=== PATIENT | female | born 1945 | race Caucasian/White ===

== ENCOUNTER → 2022-08-18 | Outpatient (CLI) | payer MEDICARE, OTHER ==
[2022-08-18 13:29] LABS: BASOPHILS ABSOLUTE AUTO 0.02 K/mm3 (0.00-0.23); BASOPHILS PERCENT AUTO 0 % (0-2); EOSINOPHILS ABSOLUTE AUTO 0.01 K/mm3 (0.00-0.68); EOSINOPHILS PERCENT AUTO 0 % (0-6); Hematocrit 42.4 % (33.0-51.0); IMMATURE GRAN ABSOLUTE AUTO 0.03 K/mm3 (0.00-0.10); IMMATURE GRAN PERCENT AUTO 0 % (0-1); LYMPHOCYTES ABSOLUTE AUTO 2.69 K/mm3 (0.84-5.20); LYMPHOCYTES PERCENT AUTO 28 % (21-46); MONOCYTES ABSOLUTE AUTO 0.73 K/mm3 (0.16-1.47); MONOCYTES PERCENT AUTO 8 % (4-13); Mean Corpuscular HGB 32.5 pg (26.0-34.0); Mean Corpuscular HGB Conc 35.4 g/dL (31.5-36.5); Mean Corpuscular Volume 92 fL (80-100); Mean Platelet Volume 9.8 fL (9.1-12.4); NEUTROPHILS PERCENT AUTO 64 % (41-73); Platelet Count 227 K/mm3 (150-400); RDW Coefficient Variation 11.8 % (11.7-14.2); RDW Standard Deviation 39.8 fL (35.1-46.3); Red Blood Cell Count 4.61 M/mm3 (3.80-5.20); White Blood Cell Count 9.58 K/mm3 (4.00-11.30)
[2022-08-18 14:21] LABS: Albumin, Blood 3.8 g/dL (3.4-5.0); Albumin/Globulin Ratio 1.2 (0.8-1.8); Bilirubin, Total 0.7 mg/dL (0.1-1.0); Calcium, Blood 9.5 mg/dL (8.5-10.1); Creatinine, Blood 0.89 mg/dL (0.40-1.00); Globulin, Blood 3.3 g/dL (2.2-4.0); Potassium, Blood 3.8 mmol/L (3.5-5.5); Thyroid Stimulating Hormone 0.915 uIU/mL (0.360-4.800); Total Protein, Blood 7.1 g/dL (6.4-8.2)
== END ==
LOC: LAB SHORT 13:21
PROVIDERS: Physician Assistant
DX: R10.9 Unspecified abdominal pain (principal); M62.81 Muscle weakness (generalized)
CPT/HCPCS: 80053; 83690; 84443; 84484; 85025

== ENCOUNTER 2022-10-09 06:40 | Emergency (ER) | payer MEDICARE, OTHER ==
[~2022-10-09] VITALS: Ht 162.6 cm; Wt 50.8 kg
[~2022-10-09 06:40] MED LIST: ONDA4ODT MM; Percocet 5-3251 EACH PO
[2022-10-09 07:33] LABS: Albumin, Blood 2.1 g/dL (3.4-5.0); Albumin/Globulin Ratio 0.8 (0.8-1.8); Bilirubin, Direct 0.2 mg/dL (0.0-0.3); Bilirubin, Indirect 0.5 mg/dL (0.1-0.7); Bilirubin, Total 0.7 mg/dL (0.1-1.0); Bun/Creatinine Ratio 23.5 (12.0-20.0); Calcium, Blood 6.2 mg/dL (8.5-10.1); Creatinine, Blood 0.64 mg/dL (0.40-1.00); Globulin, Blood 2.5 g/dL (2.2-4.0); Magnesium, Blood 1.3 mg/dL (1.6-2.4); Potassium, Blood 3.2 mmol/L (3.5-5.5); Total Protein, Blood 4.6 g/dL (6.4-8.2)
[2022-10-09 07:39] LABS: BASOPHILS PERCENT AUTO 0 % (0-2); EOSINOPHILS ABSOLUTE AUTO 0.01 K/mm3 (0.00-0.68); EOSINOPHILS PERCENT AUTO 0 % (0-6); Hematocrit 32.1 % (33.0-51.0); Hemoglobin 11.1 g/dL (11.5-16.0); IMMATURE GRAN ABSOLUTE AUTO 0.04 K/mm3 (0.00-0.10); IMMATURE GRAN PERCENT AUTO 1 % (0-1); LYMPHOCYTES ABSOLUTE AUTO 2.12 K/mm3 (0.84-5.20); LYMPHOCYTES PERCENT AUTO 27 % (21-46); MONOCYTES ABSOLUTE AUTO 0.55 K/mm3 (0.16-1.47); MONOCYTES PERCENT AUTO 7 % (4-13); Mean Corpuscular HGB 32.7 pg (26.0-34.0); Mean Corpuscular HGB Conc 34.6 g/dL (31.5-36.5); Mean Corpuscular Volume 95 fL (80-100); Mean Platelet Volume 9.8 fL (9.1-12.4); NEUTROPHILS ABSOLUTE AUTO 5.16 K/mm3 (1.96-9.15); NEUTROPHILS PERCENT AUTO 66 % (41-73); Platelet Count 189 K/mm3 (150-400); RDW Coefficient Variation 11.8 % (11.7-14.2); RDW Standard Deviation 40.9 fL (35.1-46.3); Red Blood Cell Count 3.39 M/mm3 (3.80-5.20); White Blood Cell Count 7.88 K/mm3 (4.00-11.30)
[2022-10-09 08:49] LABS: Source, Urine Clean Catch
[2022-10-09] MEDS ORDERED: EZETIMIBE10 M6 PO (08:53)
[2022-10-09 09:21] LABS: Appearance, Urine Clear (Clear); Bilirubin, Urine Neg (Neg); Blood, Urine Neg (Neg); Color, Urine Yellow (P-Yellow); Glucose Qualitative, Urine Neg (Neg); Ketones, Urine 2+ (Neg); Leukocyte Esterase, Urine Neg (Neg); Nitrite, Urine Neg (Neg); Protein, Urine Neg (Neg); Urobilinogen, Urine NORM (Normal)
[2022-10-09] MEDS ORDERED: DICY20 PO (12:25)
[2022-10-09] MEDS ORDERED: ONDA4ODT MM (12:25)
[2022-10-09 12:30] VITALS: BP 120/70
[2022-10-11] MEDS ORDERED: ONDA4ODT MM (15:01)
[2022-10-11] MEDS ORDERED: Bentyl20 MG PO (15:01)
== END 2022-10-09 13:02 | disposition home or self-care (01) ==
LOC: ER 06:40
PROVIDERS: Student in an Organized Health Care Education/Training Program
DX: R25.2 Cramp and spasm (principal); E87.6 Hypokalemia; E83.42 Hypomagnesemia; E83.51 Hypocalcemia; Z79.899 Other long term (current) drug therapy
CPT/HCPCS: 71046; 74177; 80048; 80076; 81003; 83690; 83735; 85025; 93005; 93010; 96365-59; 96366; 96368; 96375; 99285-25; A9270; J0612; J1885; J2405; J3475; J3480; J7030; Q9967

== ENCOUNTER 2022-10-22 11:54 | Inpatient (IN) | payer MEDICARE, OTHER ==
[~2022-10-22] VITALS: Ht 162.6 cm; Wt 49.9 kg
[~2022-10-22 11:54] MED LIST changes: +Bentyl20 MG PO; +DICY20 PO; +EZETIMIBE10 M6 PO
[2022-10-22] MEDS ORDERED: CELEXA10 MG PO (12:06)
[2022-10-22] MEDS ORDERED: LATANOPROST2.5 M3 (12:06)
[2022-10-22 13:43] LABS: BASOPHILS ABSOLUTE AUTO 0.02 K/mm3 (0.00-0.23); BASOPHILS PERCENT AUTO 0 % (0-2); EOSINOPHILS ABSOLUTE AUTO 0.01 K/mm3 (0.00-0.68); EOSINOPHILS PERCENT AUTO 0 % (0-6); Hematocrit 39.5 % (33.0-51.0); Hemoglobin 14.1 g/dL (11.5-16.0); IMMATURE GRAN ABSOLUTE AUTO 0.03 K/mm3 (0.00-0.10); IMMATURE GRAN PERCENT AUTO 0 % (0-1); LYMPHOCYTES ABSOLUTE AUTO 2.59 K/mm3 (0.84-5.20); LYMPHOCYTES PERCENT AUTO 28 % (21-46); MONOCYTES ABSOLUTE AUTO 0.72 K/mm3 (0.16-1.47); MONOCYTES PERCENT AUTO 8 % (4-13); Mean Corpuscular HGB 33.7 pg (26.0-34.0); Mean Corpuscular HGB Conc 35.7 g/dL (31.5-36.5); Mean Corpuscular Volume 95 fL (80-100); Mean Platelet Volume 10.1 fL (9.1-12.4); NEUTROPHILS PERCENT AUTO 64 % (41-73); Platelet Count 292 K/mm3 (150-400); RDW Coefficient Variation 12.5 % (11.7-14.2); RDW Standard Deviation 43.2 fL (35.1-46.3); Red Blood Cell Count 4.18 M/mm3 (3.80-5.20); White Blood Cell Count 9.27 K/mm3 (4.00-11.30)
[2022-10-22 14:39] LABS: Albumin, Blood 2.7 g/dL (3.4-5.0); Albumin/Globulin Ratio 0.9 (0.8-1.8); Bilirubin, Total 0.4 mg/dL (0.1-1.0); Bun/Creatinine Ratio 13.7 (12.0-20.0); Calcium, Blood 7.7 mg/dL (8.5-10.1); Creatinine, Blood 0.73 mg/dL (0.40-1.00); Globulin, Blood 2.9 g/dL (2.2-4.0); Potassium, Blood 3.4 mmol/L (3.5-5.5); Total Protein, Blood 5.6 g/dL (6.4-8.2)
[2022-10-22 18:33] VITALS: BP 143/74
[2022-10-23 02:45] VITALS: BP 142/66
--- NOTE | 2022-10-23 04:26 | NUR ---
PHONE CALL PT AWAKE IN ROOM W/ SON ON THE PHONE W/ . PT REPORTS FEELING LESS NAUSEATED THIS MORNING.
[2022-10-23 05:42] LABS: BASOPHILS ABSOLUTE AUTO 0.01 K/mm3 (0.00-0.23); BASOPHILS PERCENT AUTO 0 % (0-2); EOSINOPHILS PERCENT AUTO 0 % (0-6); Hematocrit 36.8 % (33.0-51.0); Hemoglobin 12.9 g/dL (11.5-16.0); IMMATURE GRAN ABSOLUTE AUTO 0.02 K/mm3 (0.00-0.10); IMMATURE GRAN PERCENT AUTO 0 % (0-1); LYMPHOCYTES ABSOLUTE AUTO 1.57 K/mm3 (0.84-5.20); LYMPHOCYTES PERCENT AUTO 18 % (21-46); MONOCYTES ABSOLUTE AUTO 0.62 K/mm3 (0.16-1.47); MONOCYTES PERCENT AUTO 7 % (4-13); Mean Corpuscular HGB 33.4 pg (26.0-34.0); Mean Corpuscular HGB Conc 35.1 g/dL (31.5-36.5); Mean Corpuscular Volume 95 fL (80-100); Mean Platelet Volume 9.2 fL (9.1-12.4); NEUTROPHILS ABSOLUTE AUTO 6.59 K/mm3 (1.96-9.15); NEUTROPHILS PERCENT AUTO 75 % (41-73); Platelet Count 212 K/mm3 (150-400); RDW Coefficient Variation 12.9 % (11.7-14.2); RDW Standard Deviation 44.4 fL (35.1-46.3); Red Blood Cell Count 3.86 M/mm3 (3.80-5.20); White Blood Cell Count 8.81 K/mm3 (4.00-11.30)
[2022-10-23 06:08] LABS: Albumin/Globulin Ratio 0.9 (0.8-1.8); Bilirubin, Total 0.5 mg/dL (0.1-1.0); Bun/Creatinine Ratio 11.2 (12.0-20.0); Calcium, Blood 8.8 mg/dL (8.5-10.1); Creatinine, Blood 0.71 mg/dL (0.40-1.00); Globulin, Blood 3.4 g/dL (2.2-4.0); Magnesium, Blood 1.9 mg/dL (1.6-2.4); Phosphorus, Blood 3.6 mg/dL (2.5-4.9); Total Protein, Blood 6.4 g/dL (6.4-8.2)
--- NOTE | 2022-10-23 06:14 | NUR ---
SHIFT SUMMARY ER ADMIT FOR HYPEREMISIS W/ HYPOPHOSPHATEMIA AND HYPOKALEMIA. RECENT WT LOSS OF 20LBS/ 2 MONTHS. A&OX4 VERY PLEASANT AND COOPERATIVE. AND SON VERY INVOLVED W/ PT CARE, SON STAYED W/ MOM T/O NIGHT. PT RECEIVING NS IV FLUIDS TO R FA. PT REPORTS NOT FEELING DIZZY TODAY PREVIOUS DAYS. PT CONTINUES TO REPORT OCCASIONAL NAUSEA W/ NO EMISIS REPORTED OR VISUALIZED. PT TOLERATED BITES OF JELLO AND SIPS OF BROTH THIS SHIFT. PT/OT EVAL ORDERED. NO ACUTE CHANGES THIS SHIFT. CALL LIGHT W/IN REACH, WILL REPORT OFF TO DAY SHIFT STAFF.
[2022-10-23 07:55] VITALS: BP 147/71
--- NOTE | 2022-10-23 08:42 | NUR ---
EDUCATED ON FIRE SAFETY. PT AND FAMILY VERBALIZED UNDERSTANDING.
[2022-10-23 15:46] VITALS: BP 150/69
--- NOTE | 2022-10-23 18:15 | NUR ---
SUMMARY NO ACUTE CHANGES THIS SHIFT. PT TOLERATING SMALL AMOUNTS OF CLEAR LIQUIDS. REPORTS NAUSEA IMPROVED THIS EVENING AFTER SCHEDULED ZOFRAN. GETS UP WITH MIN ASSIST TO [facility]. WORKED WITH THERAPY. PLEASANT AND COOPERATIVE. CALL LIGHT IN REACH.
[2022-10-23 19:30] VITALS: BP 134/78
[2022-10-23 19:34] VITALS: BP 150/61
[2022-10-23 19:35] VITALS: BP 150/61
[2022-10-24 04:47] LABS: BASOPHILS ABSOLUTE AUTO 0.01 K/mm3 (0.00-0.23); BASOPHILS PERCENT AUTO 0 % (0-2); EOSINOPHILS ABSOLUTE AUTO 0.01 K/mm3 (0.00-0.68); EOSINOPHILS PERCENT AUTO 0 % (0-6); Hematocrit 36.5 % (33.0-51.0); Hemoglobin 12.8 g/dL (11.5-16.0); IMMATURE GRAN ABSOLUTE AUTO 0.02 K/mm3 (0.00-0.10); IMMATURE GRAN PERCENT AUTO 0 % (0-1); LYMPHOCYTES ABSOLUTE AUTO 1.75 K/mm3 (0.84-5.20); LYMPHOCYTES PERCENT AUTO 24 % (21-46); MONOCYTES ABSOLUTE AUTO 0.62 K/mm3 (0.16-1.47); MONOCYTES PERCENT AUTO 8 % (4-13); Mean Corpuscular HGB 32.9 pg (26.0-34.0); Mean Corpuscular HGB Conc 35.1 g/dL (31.5-36.5); Mean Corpuscular Volume 94 fL (80-100); Mean Platelet Volume 9.3 fL (9.1-12.4); NEUTROPHILS ABSOLUTE AUTO 4.93 K/mm3 (1.96-9.15); NEUTROPHILS PERCENT AUTO 67 % (41-73); Platelet Count 232 K/mm3 (150-400); RDW Standard Deviation 44.1 fL (35.1-46.3); Red Blood Cell Count 3.89 M/mm3 (3.80-5.20); White Blood Cell Count 7.34 K/mm3 (4.00-11.30)
[2022-10-24 05:41] LABS: Albumin/Globulin Ratio 0.9 (0.8-1.8); Bilirubin, Total 0.5 mg/dL (0.1-1.0); Bun/Creatinine Ratio 8.1 (12.0-20.0); Creatinine, Blood 0.74 mg/dL (0.40-1.00); Globulin, Blood 3.2 g/dL (2.2-4.0); Potassium, Blood 3.9 mmol/L (3.5-5.5); Total Protein, Blood 6.2 g/dL (6.4-8.2)
[2022-10-24 07:29] VITALS: BP 128/74
--- NOTE | 2022-10-24 07:47 | NUR ---
SHIFT SUMMARY AOX4. VSS. NO EMESIS OR DRY HEAVING THIS SHIFT, TOLERATED MIN CLEAR LIQUIDS T/O SHIFT. REPORTED 2/10 PAIN L SIDE NECK RADIATING DOWN L SIDE BACK, DENIED NEED FOR MEDICATION UNTIL THIS AM WHEN SHE REPORTED PAIN HAD INCREASED TO 9/10 ALL DOWN L SIDE BACK. WHEN PAIN WAS INCREASED PT HAD INVOLUNTARY MUSCLE SPASMS SHAKINESS/TREMORS TO BLE/BUE. MEDICATED c IV TORADOL & PAIN LEVEL DECREASED TO 2/10 AGAIN. DENIES ANY DYSPNEA OR DIZZINESS. IND TRANSFER TO [facility]. CALL LIGHT IN REACH.
[2022-10-24 14:37] VITALS: BP 150/73
--- NOTE | 2022-10-24 15:26 | NUR ---
NOTE PT AND SPOUCE EDEUCATED REGUARDING RISK: IGNITION SOURCE AND RISK OF INJURY. PT/FAMILY DENY SMOKING. VERBALIZE UNDERSTANDING. coNTINUE POC.
--- NOTE | 2022-10-24 15:30 | NUR ---
DISCHARGE CALLED DR GOMEZ TO RELAY PT DESIRE TO GO HOME. ORDERS RECEOVED. CONTINUE POC.
[2022-10-24] MEDS ORDERED: HYDCOR10 PO ×3 (15:45→15:46)
[2022-10-24] MEDS ORDERED: FAMO20 PO (15:45)
[2022-10-24] MEDS ORDERED: ONDA8 PO (15:47)
[2022-10-24] MEDS ORDERED: Robaxin750 MG PO (15:47)
--- NOTE | 2022-10-24 16:45 | NUR ---
DISCHARGE PT DISCHARGE HOME VIA W/C. PERSCRIPTIONS FAXED TO [facility]. IV REMOVED WITH [facility] INTACT. PRESSURE DRESSING APPLIED. PT ALREADY HAS AN APPOINTMENT WIT HER PCP TOMORROW AT 1100. CONTINUE POC.
== END 2022-10-24 16:43 | disposition home or self-care (01) | DRG 552 ==
LOC: ER 11:54 → MEDS 17:20
PROVIDERS: Emergency Medicine; Internal Medicine; ADMIT Family Medicine
PROC: 3E0233Z Introduction of Anti-inflammatory into Muscle, Percutaneous Approach (ICD-10-PCS; principal; 2022-10-22)
PROC: 3E023BZ Introduction of Anesthetic Agent into Muscle, Percutaneous Approach (ICD-10-PCS; 2022-10-22)
DX: M62.830 Muscle spasm of back (principal); Z68.1 Body mass index [BMI] 19.9 or less, adult; E83.39 Other disorders of phosphorus metabolism; E87.6 Hypokalemia; R11.2 Nausea with vomiting, unspecified; R20.2 Paresthesia of skin; R63.4 Abnormal weight loss; Z79.899 Other long term (current) drug therapy
CPT/HCPCS: 36415; 70551; 76700; 80053; 80400; 82024; 82525; 82533; 83655; 83735; 84100; 85025; 96361; 96372; 96372-59; 96374; 96375; 97110; 97162; 97165; 97535; 99285-25; A9270; G0378; J0834; J1170; J1650; J1885; J2270; J2405; J3301; J7030; J7042; J7060

== ENCOUNTER → 2022-12-14 | Outpatient (CLI) | payer MEDICARE, OTHER ==
[~2022-12-14] MED LIST changes: +CELEXA10 MG PO; +FAMO20 PO; +HYDCOR10 PO; +LATANOPROST2.5 M3; +ONDA8 PO; +Robaxin750 MG PO
[2022-12-14 13:57] LABS: Stool Occult Bld Immuno 1 Negative (NEGATIVE)
== END | disposition home or self-care (01) ==
LOC: LAB SHORT 10:00 → LAB 10:00
PROVIDERS: Physician Assistant
DX: Z12.11 Encounter for screening for malignant neoplasm of colon (principal)
CPT/HCPCS: G0328

== ENCOUNTER 2023-02-21 07:31 | Day surgery (SDC) | payer MEDICARE, OTHER ==
[~2023-02-21] VITALS: Ht 162.6 cm; Wt 47.9 kg
[2023-02-21] MEDS ORDERED: GABA100 (08:03)
[2023-02-21 10:30] VITALS: BP 129/76
--- NOTE | 2023-02-21 10:39 | NUR ---
02/21/23 1039 Alexsandra Aragon PATIENT REPORTED BACK PAIN 11/30 THAT IS CHRONIC, STATED "IT IS ALWAYS AN 8, BUT RIGHT NOW IT IS MELLOW." PATIENT REPORTS THIS IS BASELINE, SHE IS FOLLOWING UP WITH HER PCP AND SURGEONS ABOUT THIS PAIN THAT IS CAUSED BY A NERVE AND IS SEEING A SPECIALIST TOMORROW. PATIENT EXPRESSED READINESS TO GO HOME AND WAS ASSISTED TO BATHROOM IN PRIOR TO DISCHARGE.
== END 2023-02-21 10:30 | disposition home or self-care (01) ==
LOC: ORSCSDS 07:31
PROVIDERS: Internal Medicine Gastroenterology
PROC: 0DBM8ZX Excision of Descending Colon, Via Natural or Artificial Opening Endoscopic, Diagnostic (ICD-10-PCS; principal; 2023-02-21 09:00)
PROC: 0DBE8ZX Excision of Large Intestine, Via Natural or Artificial Opening Endoscopic, Diagnostic (ICD-10-PCS; principal; 2023-02-21 09:00)
PROC: 0DB48ZX Excision of Esophagogastric Junction, Via Natural or Artificial Opening Endoscopic, Diagnostic (ICD-10-PCS; principal; 2023-02-21 09:00)
PROC: 0DB98ZX Excision of Duodenum, Via Natural or Artificial Opening Endoscopic, Diagnostic (ICD-10-PCS; principal; 2023-02-21 09:00)
PROC: 0DB78ZX Excision of Stomach, Pylorus, Via Natural or Artificial Opening Endoscopic, Diagnostic (ICD-10-PCS; principal; 2023-02-21 09:00)
PROC: 0DBK8ZX Excision of Ascending Colon, Via Natural or Artificial Opening Endoscopic, Diagnostic (ICD-10-PCS; principal; 2023-02-21 09:00)
DX: R10.84 Generalized abdominal pain (principal); K21.9 Gastro-esophageal reflux disease without esophagitis; R19.4 Change in bowel habit; R63.4 Abnormal weight loss; D12.4 Benign neoplasm of descending colon; D12.2 Benign neoplasm of ascending colon; K31.7 Polyp of stomach and duodenum; K57.30 Diverticulosis of large intestine without perforation or abscess without bleeding; K64.8 Other hemorrhoids; E78.5 Hyperlipidemia, unspecified; Z79.899 Other long term (current) drug therapy
CPT/HCPCS: 88305; 88312; 88342; J2704; J3010; J7120

== ENCOUNTER 2023-05-18 10:51 | Emergency (ER) | payer MEDICARE, OTHER ==
[~2023-05-18] VITALS: Ht 160 cm; Wt 52.2 kg
[~2023-05-18 10:51] MED LIST changes: +GABA100
[2023-05-18 11:03] VITALS: BP 131/79
[2023-05-18 11:40] LABS: BASOPHILS ABSOLUTE AUTO 0.02 K/mm3 (0.00-0.23); BASOPHILS PERCENT AUTO 0 % (0-2); EOSINOPHILS ABSOLUTE AUTO 0.01 K/mm3 (0.00-0.68); EOSINOPHILS PERCENT AUTO 0 % (0-6); Hematocrit 44.7 % (33.0-51.0); Hemoglobin 15.5 g/dL (11.5-16.0); IMMATURE GRAN ABSOLUTE AUTO 0.03 K/mm3 (0.00-0.10); IMMATURE GRAN PERCENT AUTO 0 % (0-1); LYMPHOCYTES ABSOLUTE AUTO 2.84 K/mm3 (0.84-5.20); LYMPHOCYTES PERCENT AUTO 33 % (21-46); MONOCYTES ABSOLUTE AUTO 0.61 K/mm3 (0.16-1.47); MONOCYTES PERCENT AUTO 7 % (4-13); Mean Corpuscular HGB 32.4 pg (26.0-34.0); Mean Corpuscular HGB Conc 34.7 g/dL (31.5-36.5); Mean Corpuscular Volume 94 fL (80-100); NEUTROPHILS ABSOLUTE AUTO 5.06 K/mm3 (1.96-9.15); NEUTROPHILS PERCENT AUTO 59 % (41-73); NRBC ABSOLUTE 0.02 K/mm3 (0.00-0.02); NRBC Auto 0.2 /100 WBC (0.0-0.2); Platelet Count 256 K/mm3 (150-400); RDW Coefficient Variation 12.3 % (11.7-14.2); RDW Standard Deviation 42.4 fL (35.1-46.3); Red Blood Cell Count 4.78 M/mm3 (3.80-5.20); White Blood Cell Count 8.57 K/mm3 (4.00-11.30)
[2023-05-18 11:55] LABS: Albumin, Blood 4.1 g/dL (3.4-5.0); Bilirubin, Total 1.2 mg/dL (0.1-1.0); Bun/Creatinine Ratio 17.5 (12.0-20.0); Calcium, Blood 9.9 mg/dL (8.5-10.1); Creatinine, Blood 0.8 mg/dL (0.40-1.00); Potassium, Blood 3.8 mmol/L (3.5-5.5); Total Protein, Blood 8.1 g/dL (6.4-8.2)
== END 2023-05-18 14:13 | disposition home or self-care (01) ==
LOC: ER 10:51
PROVIDERS: Physician Assistant
DX: M62.838 Other muscle spasm (principal); Z88.8 Allergy status to other drugs, medicaments and biological substances
CPT/HCPCS: 80053; 83690; 85025; 96361; 96374; 96375; 99284; J1885; J3360; J7030